=== PATIENT | female | born 1995 | race African-American/Black ===

== ENCOUNTER 2017-03-19 14:43 | Emergency (ER) | payer SELFPAY ==
[~2017-03-19 14:43] MED LIST: ALBU1AER INH
[2017-03-19 14:44] VITALS: BP 126/77; PULSE 81; RESP 18; TEMP 98.5; O2SAT 100
[2017-03-19] MEDS ORDERED: [UNRECOGNIZED DRUG - REMARK] PO (16:58)
[2017-03-19 17:00] VITALS: BP 123/76; PULSE 82; RESP 16; O2SAT 100
[2017-03-19] MEDS ORDERED: VIST25CA PO (17:27)
--- NOTE | 2017-03-19 17:27 | PD ---
HPI Chief Complaint: Anxiety Time Seen by Provider: 17:16 Travel History International Travel<30 days: No Contact w/Intl Traveler<30days: No Traveled to known affect area: No History of Present Illness HPI 21-year-old female complains of panic attack and chest pain. Patient states the symptoms started this morning. Patient states that she history of recurrent panic attack in the past. She is not on any medication for that. Patient states that the chest pain is left chest pressure without radiation. Patient states that she has occasional burning sensation across the chest wall. Patient denies any palpitation nausea vomiting diaphoresis. Patient denies any history of CAD. Patient denies history hypertension, diabetes, dyslipidemia. Patient is a nonsmoker. Patient denies any history of alcohol or drug abuse. PFSH Past Medical History Asthma: Yes Respiratory: Yes (ASTHMA) Tetanus Vaccination: Unknown Influenza Vaccination: No ?: Unknown LMP: 03/05/17 : 0 Past Surgical History Surgical History: No Previous Surgery Social History Alcohol Use: Yes (SOCIALLY) Tobacco Use: No Substance Use: No Allergies-Medications (Allergen,Severity, Reaction): Coded Allergies: No Known Allergies (Unverified Adverse Reaction, Unknown, 03/19/17) Reported Meds & Prescriptions Reported Meds & Active Scripts Active Reported [deppression med] Unknown Dose PO DAILY Review of Systems General / Constitutional: No: Fever Eyes: No: Visual changes HENT: No: Headaches Cardiovascular: Positive: Chest Pain or Discomfort Respiratory: No: Shortness of Breath Gastrointestinal: No: Abdominal Pain Genitourinary: No: Dysuria Musculoskeletal: No: Pain Skin: No Rash Neurologic: No: Weakness Psychiatric: No: Depression Endocrine: No: Polydipsia Hematologic/Lymphatic: No: Easy Bruising Physical Exam Narrative GENERAL: Well-nourished, well-developed patient. SKIN: Focused skin assessment warm/dry. HEAD: Normocephalic. EYES: No scleral icterus. No injection or drainage. NECK: Supple, trachea midline. No JVD or lymphadenopathy. CARDIOVASCULAR: Regular rate and rhythm without murmurs, gallops, or rubs. RESPIRATORY: Breath sounds equal bilaterally. No accessory muscle use. GASTROINTESTINAL: Abdomen soft, non-tender, nondistended. MUSCULOSKELETAL: No cyanosis, or edema. BACK: Nontender without obvious deformity. No CVA tenderness. Neurologic exam normal. Data Data Last Documented VS Vital Signs Date Time Temp Pulse Resp B/P (MAP) Pulse Ox O2 Delivery O2 Flow Rate FiO2 03/19/17 17:00 82 16 123/76 (92) 100 Room Air 03/19/17 14:44 98.5 Orders Orders Electrocardiogram (03/19/17 ) MDM Medical Decision Making Medical Screen Exam Complete: Yes Emergency Medical Condition: Yes Differential Diagnosis Differential diagnosis including anxiety panic attack, musculoskeletal, angina, NV, PE, pneumothorax. Narrative Course 21-year-old female with recurrent panic attack and chest pain. Diagnosis Primary Impression: Atypical chest pain Additional Impression: Panic attack Patient Instructions: General Instructions Additional Instructions: Vistaril as needed. Follow-up local physician. Return if worse. Med/Other Pt SpecificInfo: Prescription(s) given Scripts Hydroxyzine Pamoate (Vistaril) 25 Mg Cap 25 MG PO TID Y for PANIC ATTACK, #21 CAP 0 Refills Prov: Adolfo Griffiths MD 03/19/17 Disposition: 01 DISCHARGE HOME Condition: Stable Adolfo Griffiths MD Mar 19, 2017 17:27
[2017-03-19 17:42] VITALS: BP 120/82
--- NOTE | 2017-03-20 09:51 | EKG ---
Date Performed: 03/19/2017 Time Performed: 17:28:14 PTAGE: 21 years EKG: Sinus rhythm WITH SINUS ARRHYTHMIA NORMAL ECG NO PREVIOUS TRACING DOCTOR: Denton Ang Interpretating Date/Time 03/20/2017 09:49:50
== END 2017-03-19 18:00 | disposition home or self-care (01) ==
LOC: NEPD 14:43
DX: F41.0 Panic disorder [episodic paroxysmal anxiety] (principal); R07.89 Other chest pain; J45.909 Unspecified asthma, uncomplicated
CPT/HCPCS: 93005; 99283

== ENCOUNTER 2017-06-07 09:52 | Emergency (ER) | payer SELFPAY ==
[~2017-06-07] VITALS: Ht 154.9 cm; Wt 62.0 kg
[~2017-06-07 09:52] MED LIST changes: -ALBU1AER INH; +VIST25CA PO; +[UNRECOGNIZED DRUG - REMARK] PO
[2017-06-07 09:54] VITALS: BP 121/79; PULSE 67; RESP 12; TEMP 98.1; O2SAT 99
--- NOTE | 2017-06-07 12:29 | PD ---
HPI Chief Complaint: Cold / Flu Symptoms Time Seen by Provider: 12:28 Travel History International Travel<30 days: No Contact w/Intl Traveler<30days: No Traveled to known affect area: No History of Present Illness HPI 22-year-old female, with history of asthma, presents to the emergency department requesting influenza test. Her school gave her antibiotics which she has been taking for 3 days with continued cold/flu symptoms. Reports nasal congestion, cough, body aches, subjective fever. Denies sore throat, ear pain. Reports chest tightness and shortness of breath that is relieved with her inhaler, and denies chest tightness or shortness of breath at this time. Denies abdominal pain, vomiting, diarrhea. Has not taken any medications or tried any treatments, other than her inhaler, for symptom management. No known aggravating or relieving factors. Symptoms are mild in severity. Primary care provider is back home. Has no other medical complaints. History of asthma. No known allergies. No other modifying factors or associated signs and symptoms. PFSH Past Medical History Asthma: Yes Respiratory: Yes (ASTHMA) ?: Not : 0 Social History Alcohol Use: Yes (SOCIALLY) Tobacco Use: No Substance Use: No Allergies-Medications (Allergen,Severity, Reaction): Coded Allergies: No Known Allergies (Unverified Adverse Reaction, Unknown, 06/07/17) Reported Meds & Prescriptions Reported Meds & Active Scripts Active Ibuprofen 800 Mg Tab 800 Mg PO Q6HR PRN Deltasone (Prednisone) 20 Mg Tab 40 Mg PO DAILY 5 Days Ventolin Hfa 18 GM Inh (Albuterol Sulfate) 90 Mcg/Act Aer 2 Puff INH Q4-6H PRN Vistaril (Hydroxyzine Pamoate) 25 Mg Cap 25 Mg PO TID PRN Reported [deppression med] Unknown Dose PO DAILY Review of Systems Except as stated in HPI: all other systems reviewed are Neg Physical Exam Narrative GENERAL: Well-nourished, well-developed black female patient, in no acute distress; afebrile, nontoxic-appearing SKIN: Warm and dry. No rash. HEAD: Atraumatic. Normocephalic. EYES: Pupils equal and round. No scleral icterus. No injection or drainage. ENT: Mucosa pink and moist. No erythema or exudates. No uvular edema. No uvular , palatal, or tonsillar deviation. Airway patent. EARS: Bilateral pinnae and external canals appear within normal limits. Bilateral tympanic membranes without erythema, dullness or perforation. NECK: Trachea midline. No lymphadenopathy. CARDIOVASCULAR: Regular rate and rhythm. No murmur appreciated. RESPIRATORY: No accessory muscle use. Clear to auscultation. Breath sounds equal bilaterally. No retractions or tachypnea. GASTROINTESTINAL: Abdomen soft, non-tender, nondistended. Hepatic and splenic margins not palpable. Bowel sounds are active 4 quadrants. MUSCULOSKELETAL: No obvious deformities. No clubbing. No cyanosis. No edema. NEUROLOGICAL: Awake and alert. Oriented 3. No obvious cranial nerve deficits. Motor grossly within normal limits. Normal speech. Moves all extremities. 5/5 strength to all extremities. PSYCHIATRIC: Appropriate mood and affect; insight and judgment normal. Data Data Last Documented VS Vital Signs Date Time Temp Pulse Resp B/P (MAP) Pulse Ox O2 Delivery O2 Flow Rate FiO2 06/07/17 09:54 98.1 67 12 121/79 (93) 99 Orders Orders Influenzae A/B Antigen (06/07/17 10:15) Ibuprofen (Motrin) (06/07/17 12:45) Ed Discharge Order (06/07/17 12:36) MDM Medical Decision Making Medical Screen Exam Complete: Yes Emergency Medical Condition: Yes Medical Record Reviewed: Yes Differential Diagnosis Asthma exacerbation, viral illness, upper respiratory infection, influenza Narrative Course 22-year-old female with a negative influenza test. She is afebrile nontoxic appearing. Denies fever, vomiting. Has history of asthma and has been using her inhaler for chest tightness, shortness breath, wheezing with good relief. Physical exam is unremarkable. Suspecting viral illness. Discussed viral illness and symptomatic management. I will give the patient prescription for Deltasone for home. Requesting medication refill on albuterol inhaler. Ibuprofen, Deltasone, Ventolin inhaler prescribed for home. Instructed patient to follow up with primary care provider. Patient verbalizes understanding and agreement with treatment plan. Patient is medically cleared and stable for discharge. Discussed reasons to return to the emergency department. Patient agrees with treatment plan. The patients vital signs are stable and the patient is stable for outpatient follow-up and treatment. Patient discharged home, stable and in no acute distress. Diagnosis Primary Impression: Viral illness Additional Impression: Medication refill Referrals: [facility] Primary Care Physician Patient Instructions: Cold Symptoms (ED), General Instructions, Influenza (ED) , Safe Use of Cough and Cold Medicines (ED) Departure Forms: School Release, Please excuse from school until (free text option): Until fever free for 24 hours Tests/Procedures Additional Instructions: Use Albuterol inhaler as prescribed Take oral steroids as prescribed and complete full course Ibuprofen or Tylenol as directed and as needed for fever, pain [id number] decongestants or antihistamines as directed and as needed for symptom management Your cough can last 4-6 weeks Drink plenty of fluids to prevent dehydration Use hot air humidifier to decrease cough exacerbation Turn off ceiling fans and sleep with head of bed elevated Avoid triggers such as second hand smoke, dust, known allergens Follow-up with your primary care provider Return to the emergency department immediately with worsening of symptoms Med/Other Pt SpecificInfo: Prescription(s) given Scripts Ibuprofen (Ibuprofen) 800 Mg Tab 800 MG PO Q6HR Y for PAIN, #30 TAB 0 Refills Prov: Nishi Whitley 06/07/17 Prednisone (Deltasone) 20 Mg Tab 40 MG PO DAILY for 5 Days, #10 TAB 0 Refills Prov: Nishi Whitley 06/07/17 Albuterol 18 GM Inh (Ventolin Hfa 18 GM Inh) 90 Mcg/Act Aer 2 PUFF INH Q4-6H Y for SOB/WHEEZING, #1 INHALER 0 Refills Prov: Nishi Whitley 06/07/17 Disposition: 01 DISCHARGE HOME Condition: Stable Nishi Whitley Jun 07, 2017 12:29
[2017-06-07] MEDS ORDERED: VENTAER INH (12:34)
[2017-06-07] MEDS ORDERED: IBUP1TAB7 PO (12:34)
[2017-06-07] MEDS ORDERED: PRED-503 PO (12:34)
[2017-06-07 12:38] VITALS: BP 107/60; PULSE 55; RESP 18; O2SAT 98
[2017-06-07] MEDS ORDERED: ALBUAER3 INH (12:38)
[2017-06-07] MEDS ORDERED: IBUPROFEN 800 MG TAB PO ONE (12:45)
== END 2017-06-07 13:13 | disposition home or self-care (01) ==
LOC: NEPD 09:52
DX: B34.9 Viral infection, unspecified (principal); J45.909 Unspecified asthma, uncomplicated
CPT/HCPCS: 87804; 99283